=== PATIENT | male | born 1960 | race Caucasian/White ===

== ENCOUNTER → 2021-09-01 | Outpatient (CLI) | payer MEDICARE, BC ==
[~2021-09-01] MED LIST: CARV25TA PO; D3 S1CAP3 PO; DIGO0.253 PO; DULO1CAP6 PO; EZET10TA21 PO; FARX1TAB3 PO; FLEC25TA PO; GLIP5TAB8 PO; GRAP50CA3 PO; OMEGCAP4 PO; PANT40TA29 PO; RA T500C2 PO; SEMA1PEN2 SQ; SIMV20TA22 PO; SPIR-10 PO; XARE20TA PO; ZINC1TAB2 PO; [UNRECOGNIZED DRUG - OTHER] PO
== END ==
LOC: M LABSMTC 10:43
PROVIDERS: ATTEND Anesthesiology
DX: Z01.818 Encounter for other preprocedural examination (principal); Z11.52 Encounter for screening for COVID-19

== ENCOUNTER 2021-09-06 12:14 | Day surgery (SDC) | payer MEDICARE, BC ==
[~2021-09-06] VITALS: Ht 177.8 cm; Wt 87.5 kg
[~2021-09-06 12:14] MED LIST changes: +LR 1,000 ML IV ONE; +ceFAZolin SOD 2 GM in IV 1 EA IV ONE
[2021-09-06] MEDS ORDERED: MIDAZOLAM INJ 2MG/2ML VIAL (J2250 PER 1MG) As Ordered ONE (14:24)
[2021-09-06] MEDS ORDERED: fentaNYL 100 MCG/2 ML INJECTION As Ordered ONE (14:24)
[2021-09-06] MEDS ORDERED: LIDOCAINE 1% SDV 30ML VIAL As Ordered ONE (14:26)
[2021-09-06 15:49] VITALS: BP 141/72
== END 2021-09-06 15:49 | disposition home or self-care (01) ==
LOC: M SDC 12:14
PROVIDERS: ATTEND Internal Medicine Cardiovascular Disease
DX: I48.0 Paroxysmal atrial fibrillation (principal); R00.2 Palpitations; E11.9 Type 2 diabetes mellitus without complications; I10 Essential (primary) hypertension; E78.5 Hyperlipidemia, unspecified; Z79.01 Long term (current) use of anticoagulants; K21.9 Gastro-esophageal reflux disease without esophagitis; G47.33 Obstructive sleep apnea (adult) (pediatric); Z79.899 Other long term (current) drug therapy
CPT/HCPCS: 33285; C1764; J0690; J2250; J3010

== ENCOUNTER → 2024-05-23 | Outpatient (CLI) | payer MEDICARE, BC ==
[~2024-05-23] MED LIST changes: +GLIP5TAB17 PO; -GLIP5TAB8 PO; -LR 1,000 ML IV ONE; -ceFAZolin SOD 2 GM in IV 1 EA IV ONE
== END ==
LOC: M PLAIMG 08:55
PROVIDERS: ATTEND Registered Nurse
DX: I51.7 Cardiomegaly (principal); I48.0 Paroxysmal atrial fibrillation; I11.9 Hypertensive heart disease without heart failure